=== PATIENT | male | born 1975 | race Two or more races ===

== ENCOUNTER 2018-04-16 06:32 | Day surgery (SDC) | payer OTHER ==
[2018-04-16] MEDS ORDERED: MIDAZOLAM HCL 2 MG/2ML VIAL ONE (07:41)
[2018-04-16] MEDS ORDERED: SCOPOLAMINE HBR 1 EA PATCH.TD72 TD ONE (07:41)
[2018-04-16] MEDS ORDERED: FENTANYL PF 100MCG/2ML AMPUL ONE (07:41)
[2018-04-16] MEDS ORDERED: HYDROCODONE/APAP 5/325MG 1 EACH TABLET ONE ×2 (09:29→09:55)
[2018-04-16] MEDS ORDERED: HYDROCODONE/APAP 5/325MG 1 EACH TABLET PO PRN ×2 (12:00)
== END 2018-04-16 10:30 | disposition home or self-care (01) ==
LOC: DS 06:32
PROVIDERS: ATTEND Specialist
DX: S83.511A Sprain of anterior cruciate ligament of right knee, initial encounter (principal); D64.9 Anemia, unspecified; E11.9 Type 2 diabetes mellitus without complications; X58.XXXA Exposure to other specified factors, initial encounter; Y93.89 Activity, other specified; Y92.89 Other specified places as the place of occurrence of the external cause; Y99.8 Other external cause status; Z79.899 Other long term (current) drug therapy; Z98.890 Other specified postprocedural states
CPT/HCPCS: 82962-TC; 88304-TC; 88311-TC; A4217; A6253; A6402; C1713; J0690; J1100; J1885; J2001; J2250; J2704; J3010; J3490; J7120